=== PATIENT | male | born 1985 | race Caucasian/White ===

== ENCOUNTER 2016-06-18 20:18 | Emergency (ER) | payer BC ==
[2016-06-18 20:18] VITALS: BMI 27.1
[2016-06-18] MEDS ORDERED: Iohexol 240 (50 ml) PO ONE (22:25)
--- NOTE | 2016-06-18 22:31 | C.PDOC ---
History Of Present Illness Patient is a 31 year old male who presents to the ER with a complaint of right sided abdominal pain intermittently for the past year. Patient reports heavy lifting while at work today and the abdominal pain worsened. Patient notes that pain worsens with eating and describes bloating sensation. Patient reports past medical history of hyperlipidemia and notes he does not take medication for it. Otherwise, patient denies any nausea, vomiting, diarrhea, or changes in bowel habits. He does have occasional constipation. Time Seen by Provider: 06/18/16 22:19 Chief Complaint (Nursing): Abdominal Pain History Per: Patient History/Exam Limitations: no limitations Onset/Duration Of Symptoms: Hrs (Worsening today), Intermittent Episodes (For the past year) Current Symptoms Are (Timing): Still Present Location Of Pain/Discomfort: RLQ Associated Symptoms: denies: Nausea, Vomiting, Diarrhea, Constipation Past Medical History Vital Signs: Last Vital Signs Temp 97.7 F 06/18/16 20:36 Pulse 68 06/18/16 20:36 Resp 18 06/18/16 20:36 BP 146/79 06/18/16 20:36 Pulse Ox 100 06/19/16 01:00 - Medical History PMH: Hypercholesterolemia Family History: States: Unknown Family Hx - Social History Hx Tobacco Use: Yes Hx Alcohol Use: No Hx Substance Use: No - Immunization History Hx Tetanus Toxoid Vaccination: Yes Hx Influenza Vaccination: Yes Hx Pneumococcal Vaccination: No Review Of Systems Except As Marked, All Systems Reviewed And Found Negative. Constitutional: Negative for: Fever, Chills Gastrointestinal: Positive for: Abdominal Pain (Right lower quadrant). Negative for: Nausea, Vomiting, Diarrhea Physical Exam - Physical Exam Appears: Well, Non-toxic, No Acute Distress, Other (Moves on/off stretcher with ease) Skin: Normal Color, Warm, Dry Oral Mucosa: Moist Chest: Symmetrical Cardiovascular: Rhythm Regular Respiratory: Normal Breath Sounds, No Rales, No Rhonchi, No Wheezing Gastrointestinal/Abdominal: Normal Exam, Bowel Sounds (normal), Soft, Tenderness (Right lower quadrant), No Distention, Guarding, No Rebound Extremity: Normal ROM, No Tenderness, Capillary Refill (< 2 sec. ) Neurological/Psych: Oriented x3, Normal Speech, Normal Cognition ED Course And Treatment - Laboratory Results Result Diagrams: 06/18/16 23:00 06/18/16 23:00 Lab Interpretation: Normal O2 Sat by Pulse Oximetry: 100 Pulse Ox Interpretation: Normal - CT Scan/US Abd/pelvis w/ PO & IV contrast CT Other Rad Studies (CT/US): Read By Radiologist CT/US Interpretation: IMPRESSION: Constipation Progress Note: Abd/pelvis PO and IV contrast CT, Urinalysis, and blood work ordered. Reevaluation Time: 01:02 Reassessment Condition: Improved (Patient remains comfortable and in no distress ) Disposition Counseled Patient/Family Regarding: Studies Performed, Diagnosis, Need For Followup - Disposition Referrals: [facility] [Outside] Disposition: HOME/ ROUTINE Disposition Time: 01:06 Condition: STABLE Instructions: Constipation (ED) - Clinical Impression Clinical Impression: Constipation, Abdominal pain - Scribe Statement The provider has reviewed the documentation as recorded by the Scribe Moe Yousif All medical record entries made by the Roeibe were at my direction and personally dictated by me. I have reviewed the chart and agree that the record accurately reflects my personal performance of the history, physical exam, medical decision making, and the department course for this patient. I have also personally directed, reviewed, and agree with the discharge instructions and disposition.
[2016-06-18] MEDS ORDERED: Iohexol 240 (50 ml) ONE (22:44)
[2016-06-18 23:16] LABS: CHLORIDE 96 mmol/L (98-107)
[2016-06-18 23:17] LABS: POTASSIUM 4.1 mmol/L (3.6-5.2); SODIUM 137 mmol/L (132-148)
[2016-06-18 23:19] LABS: ALB/GLOB RATIO 1.3 (1.0-2.1); AST/SGOT 45 U/L (17-59); BILIRUBIN,TOTAL 0.6 mg/dL (0.2-1.3); CARBON DIOXIDE 28 mmol/L (22-30); GFR AFRICAN-AMERICAN > 60; TOTAL PROTEIN 8.2 g/dL (6.3-8.3)
[2016-06-18 23:20] LABS: ALKALINE PHOSPHATASE 69 U/L (38-126); ALT/SGPT 79 U/L (21-72); BLOOD UREA NITROGEN 19 mg/dL (9-20); CALCIUM 9.4 mg/dl (8.6-10.4); GLUCOSE,RANDOM 89 mg/dL (75-110)
[2016-06-18 23:31] LABS: BASO % 0.7 % (0.0-2.0); EOS # 0.2 K/uL (0.0-0.7); EOS % 2.8 % (0.0-4.0); HEMATOCRIT 48.4 % (35.0-51.0); LYMPH # 2.9 K/uL (1.0-4.3); LYMPH % 46.3 % (20.0-40.0); MEAN CORPUSCULAR HEMOGLOBIN 30.6 pg (27.0-31.0); MEAN CORPUSCULAR HGB CONC 35.4 g/dL (33.0-37.0); MEAN PLATELET VOLUME 9.1 fL (7.2-11.7); MONO # 0.5 K/uL (0.0-0.8); MONO % 8.4 % (0.0-10.0); NRBC % 0.3 % (0.0-2.0); RED CELL DISTRIBUTION WIDTH 12.6 % (11.5-14.5); WHITE BLOOD COUNT 6.2 K/uL (4.8-10.8)
[2016-06-18 23:31] LABS: RBC URINE 1 /hpf (0-3); URINE BILIRUBIN NEGATIVE (NEGATIVE); URINE BLOOD NEGATIVE (NEGATIVE); URINE COLOR Yellow (YELLOW); URINE GLUCOSE (UA) NORMAL (Normal); URINE KETONE NEGATIVE (NEGATIVE); URINE LEUKOCYTE ESTERASE NEG Leu/uL (Negative); URINE PROTEIN NEGATIVE (NEGATIVE); URINE UROBILINOGEN NORMAL mg/dL (0.2-1.0); WBC URINE < 1 /hpf (0-5)
[2016-06-18 23:39] LABS: MEAN CELL VOLUME 86.5 fL (80.0-94.0)
[2016-06-19 01:15] VITALS: BP 130/71; PULSE 78; RESP 20; TEMP 97.8; O2SAT 99
--- NOTE | 2016-06-19 08:26 | CT ---
PROCEDURE: CT Abdomen and Pelvis with contrast HISTORY: abd pain COMPARISON: None. TECHNIQUE: Contrast dose: 100 cc of Visipaque Radiation dose: Total exam DLP = 557 mGy-cm. FINDINGS: LOWER THORAX: Unremarkable. LIVER: Unremarkable. No gross lesion or ductal dilatation. GALLBLADDER AND BILE DUCTS: Unremarkable. PANCREAS: Unremarkable. No gross lesion or ductal dilatation. SPLEEN: Unremarkable. ADRENALS: Unremarkable. No mass. KIDNEYS AND URETERS: Unremarkable. No hydronephrosis. No solid mass. VASCULATURE: Unremarkable. No aortic aneurysm. BOWEL: Unremarkable. No obstruction. No gross mural thickening. There is mild constipation with fecal retention APPENDIX: Normal appendix. PERITONEUM: Unremarkable. No free fluid. No free air. LYMPH NODES: Unremarkable. No enlarged lymph nodes. BLADDER: Unremarkable. REPRODUCTIVE: Unremarkable. BONES: No acute fracture. OTHER FINDINGS: The report concurs with the preliminary [facility] report IMPRESSION: No acute findings
== END 2016-06-19 01:17 | disposition home or self-care (01) ==
LOC: C.ER 20:18
DX: K59.00 Constipation, unspecified (principal)
CPT/HCPCS: 74177; 80053; 81001; 85025; 99284; Q9966

== ENCOUNTER 2017-09-01 20:44 | Emergency (ER) | payer BC ==
[2017-09-01 20:44] VITALS: BMI 27.1
[2017-09-01 20:59] VITALS: O2SAT 98
--- NOTE | 2017-09-01 22:17 | C.PDOC ---
History Of Present Illness 32 year old male presents to the ER with a complaint of an intermittent headache for the past week. Patient describes the headache as a frontal aching headache that is worse in the morning. Denies nausea, vomiting, photophobia, neck pain, or trauma. Pain is 5/10 now Time Seen by Provider: 09/01/17 21:16 Chief Complaint (Nursing): Headache History Per: Patient History/Exam Limitations: no limitations Onset/Duration Of Symptoms: Days, Intermittent Episodes Current Symptoms Are (Timing): Still Present Quality: Aching Preceeding Symptoms: None Associated Symptoms: denies: Photophobia, Blurred Vision, Nausea, Vomiting, Extremity Weakness Recent travel outside of the [place]: No Past Medical History Reviewed: Historical Data, Nursing Documentation, Vital Signs Vital Signs: Last Vital Signs Temp 97.6 F 09/01/17 22:34 Pulse 67 09/01/17 22:34 Resp 18 09/01/17 22:34 BP 116/75 09/01/17 22:34 Pulse Ox 98 09/02/17 00:33 - Medical History PMH: Hypercholesterolemia Family History: States: Unknown Family Hx - Social History Hx Tobacco Use: Yes Hx Alcohol Use: No Hx Substance Use: No - Immunization History Hx Tetanus Toxoid Vaccination: Yes Hx Influenza Vaccination: Yes Hx Pneumococcal Vaccination: No Review Of Systems Constitutional: Negative for: Fever, Chills Gastrointestinal: Negative for: Nausea, Vomiting Musculoskeletal: Negative for: Neck Pain Neurological: Positive for: Headache. Negative for: Other (Photophobia) Physical Exam - Physical Exam Appears: Non-toxic Skin: Normal Color, Warm, Dry Head: Atraumatic, Normacephalic Eye(s): bilateral: Normal Inspection, PERRL, EOMI Oral Mucosa: Moist Neck: Normal, Supple, Other (No rigidity) Chest: Symmetrical, No Tenderness Cardiovascular: Rhythm Regular Respiratory: Normal Breath Sounds, No Rales, No Rhonchi, No Wheezing Extremity: Normal ROM (x4) Neurological/Psych: Oriented x3, Normal Speech, Normal Cognition, Normal Motor, Normal Sensation, Other (No focal deficits) ED Course And Treatment O2 Sat by Pulse Oximetry: 98 (Room air) Pulse Ox Interpretation: Normal Progress Note: Motrin adminstered. On reevaluation, patient reports improvement of pain, repeat vitals show patient's blood pressure has decreased, he is resting comfortably in no acute distress, will discharge home with instructions to follow up with PMD or return if symptoms worsen. Disposition Counseled Patient/Family Regarding: Diagnosis, Need For Followup, Rx Given - Disposition Referrals: Valentine Vilchis [Staff Provider] - Disposition: HOME/ ROUTINE Disposition Time: 22:14 Condition: STABLE Additional Instructions: Take motrin as directed Follow up with PMD Return to ER if worse Prescriptions: Ibuprofen [Motrin] 600 mg PO Q6H #20 tab Instructions: Headache, Adult (DC) Forms: Exacter (British) - Clinical Impression Clinical Impression: Headache - PA / SIDE SPLITTER / Resident Statement MD/DO has reviewed & agrees with the documentation as recorded. - Scribe Statement The provider has reviewed the documentation as recorded by the Scribronit Yousif All medical record entries made by the Scribe were at my direction and personally dictated by me. I have reviewed the chart and agree that the record accurately reflects my personal performance of the history, physical exam, medical decision making, and the department course for this patient. I have also personally directed, reviewed, and agree with the discharge instructions and disposition.
[2017-09-01 22:35] VITALS: BP 116/75; PULSE 67; RESP 18; TEMP 97.6
== END 2017-09-01 22:35 | disposition home or self-care (01) ==
LOC: C.ER 20:44
DX: R51 Headache (principal)